=== PATIENT | male | born 1985 | race Caucasian/White ===

== ENCOUNTER 2017-09-15 13:26 | Emergency (ER) | payer MEDICAID, OTHER ==
[2017-09-15] MEDS ORDERED: Doxycycline 100 MG Cap PO ONE (13:34)
[2017-09-15] MEDS ORDERED: Take Home: Doxycycline 100 MG Tab, 4 Tab Pack PO ONE (13:34)
--- NOTE | 2017-09-15 13:40 | EDM.PDOC ---
ED HPI GENERAL MEDICAL PROBLEM - General Chief Complaint: Skin Complaint Stated Complaint: TIC BITE Time Seen by Provider: 09/15/17 13:28 Source of Information: Reports: Patient History Limitations: Reports: No Limitations - History of Present Illness INITIAL COMMENTS - FREE TEXT/NARRATIVE: Patient reports a tick being between his right great and second toe. He states it was in less than a day and he ripped it out. This was 2 days ago. It does have a blister and is bleeding. He did try to clean it with peroxide. Onset: Gradual Onset Date: 09/13/17 Duration: Getting Worse Severity: Mild Associated Symptoms: Reports: No Other Symptoms - Related Data Allergies Allergy/AdvReac Type Severity Reaction Status Date / Time No Known Allergies Allergy Verified 09/15/17 13:36 Home Meds: Home Meds . [No Known Home Meds] 09/15/17 [History] ED ROS GENERAL - Review of Systems Review Of Systems: See Below Constitutional: Reports: No Symptoms HEENT: Reports: No Symptoms Respiratory: Reports: No Symptoms Cardiovascular: Reports: No Symptoms Endocrine: Reports: No Symptoms GI/Abdominal: Reports: No Symptoms : Reports: No Symptoms Musculoskeletal: Reports: No Symptoms Skin: Reports: Wound (tick bite, blister between great and 2nd right toes) Neurological: Reports: No Symptoms Psychiatric: Reports: No Symptoms Hematologic/Lymphatic: Reports: No Symptoms Immunologic: Reports: No Symptoms ED EXAM, SKIN/RASH Exam: See Below Exam Limited By: No Limitations General Appearance: Alert, WD/WN, Mild Distress Neurological: Alert, Oriented, CN II-XII Intact, Normal Cognition, Normal Gait, Normal Reflexes, No Motor/Sensory Deficits Psychiatric: Normal Affect, Normal Mood Skin: Warm, Dry, Erythema, Wound/Incision (opened blister at junction of great and 2nd toe. red. No purulent drainage, some bloody drainage) Location, Skin: Other Lymphatic: No Adenopathy Departure - Departure Time of Disposition: 13:44 Disposition: Home, Self-Care 01 Condition: Good Clinical Impression: Tick bite - Discharge Information Instructions: Tick Bite Information, Adult, [id number] Additional Instructions: Take all of the doxycycline. If you have throat tightening, facial swelling, or difficulty breathing stop the medication and come to the nearest medical facility. Keep the toe clean and dry. You should also take some probiotics or eat some yogurt to help keep your healthy gut virgil intact. Follow up as needed with primary care. Please call with any questions or concerns. - Problem List & Annotations (1) Tick bite SNOMED Code(s): 22873634 Code(s): W57.XXXA - BIT/STUNG BY NONVENOM INSECT & OTH NONVENOM ARTHROPODS, INIT Status: Acute Priority: Low Qualifiers: Encounter type: initial encounter Qualified Code(s): W57.XXXA - Bitten or stung by nonvenomous insect and other nonvenomous arthropods, initial encounter - Problem List Review Problem List Initiated/Reviewed/Updated: Yes - Assessment/Plan Assessment:: tick bite Plan: Take all of the doxycycline. If you have throat tightening, facial swelling, or difficulty breathing stop the medication and come to the nearest medical facility. Keep the toe clean and dry. You should also take some probiotics or eat some yogurt to help keep your healthy gut virgil intact. Follow up as needed with primary care. Please call with any questions or concerns.
== END 2017-09-15 13:50 | disposition home or self-care (01) ==
LOC: VM.ED 13:26
DX: S90.462A Insect bite (nonvenomous), left great toe, initial encounter (principal); W57.XXXA Bitten or stung by nonvenomous insect and other nonvenomous arthropods, initial encounter
CPT/HCPCS: 99282; A9270